=== PATIENT | female | born 1930 | race Two or more races ===

== ENCOUNTER 2020-03-24 05:50 | Day surgery (SDC) | payer OTHER ==
[~2020-03-24 05:50] MED LIST: AMBIEN CR12.5 MG PO; AVAPRO150 MG PO; CARVEDILOL12.5 M1 PO; CILOSTAZOL50 MG PO; GLIPIZIDE XL5 MG PO; JANUMET XR 1001 EACH PO; LEVO-T25 MCG PO; PREVACID30 MG PO; SIMVASTATIN20 MG PO
[2020-03-24] MEDS ORDERED: ULTRAM50 MG PO (11:28)
[2020-03-24] MEDS ORDERED: COLACE100 MG PO (11:29)
== END 2020-03-24 17:40 | disposition home or self-care (01) ==
LOC: CIR.AMB 05:50
PROVIDERS: ATTEND Surgery
DX: K62.3 Rectal prolapse (principal); Z20.828 Contact with and (suspected) exposure to other viral communicable diseases